=== PATIENT | male | born 1955 | race Caucasian/White ===

== ENCOUNTER 2019-09-25 11:43 | Inpatient (IN) | payer OTHER ==
[~2019-09-25] VITALS: Ht 180.3 cm; Wt 122.1 kg
--- NOTE | 2019-09-25 12:16 | NUR ---
IV START, LABS DRAWN AND LABELLED.
[2019-09-25] MEDS ORDERED: MAALOX/HYOSCYAMINE/LIDOCAINE 45 ML BTL ONE (12:24)
[2019-09-25] MEDS ORDERED: ASPIRIN 81 MG TABLET CHEW ONE (12:24)
[2019-09-25] MEDS ORDERED: MAALOX/HYOSCYAMINE/LIDOCAINE 45 ML BTL PO ONE (12:30)
[2019-09-25] MEDS ORDERED: SODIUM CHLORIDE FLUSH 10ML SYR IVF ONE (12:30)
[2019-09-25] MEDS ORDERED: ASPIRIN 81 MG TABLET CHEW PO ONE (12:30)
[2019-09-25 12:47] LABS: BASOPHILS # (AUTO) 0.03 x10^3/uL (0-0.1); BASOPHILS % (AUTO) 0 % (0-1); EOSINOPHILS # (AUTO) 0.08 x10^3/uL (0-0.4); EOSINOPHILS % (AUTO) 1 % (1-7); LYMPHOCYTES # (AUTO) 1.85 x10^3/uL (1-3.4); LYMPHOCYTES % (AUTO) 20 % (22-44); MD NO; MEAN CORPUSCULAR HEMOGLOBIN 29.7 pg (27.5-34.5); MEAN CORPUSCULAR VOLUME 89.9 fL (81-97); MONOCYTES # (AUTO) 0.67 x10^3/uL (0.2-0.8); MONOCYTES % (AUTO) 7 % (2-9); NEUTROPHILS # (AUTO) 6.73 x10^3/uL (1.8-6.8); NEUTROPHILS % (AUTO) 72 % (42-75); PLATELET COUNT 227 x10^3/uL (130-400); RED BLOOD COUNT 5.21 x10^6/uL (4.38-5.82); RED CELL DISTRIBUTION WIDTH 14.6 % (9.4-14.8)
[2019-09-25 12:48] LABS: ALANINE AMINOTRANSFERASE 33 U/L (12-78); ALBUMIN 3.5 g/dL (3.4-5.0); ANION GAP 7 mmol/L (5-15); CALCIUM 8.4 mg/dL (8.5-10.1); CHLORIDE 109 mmol/L (98-107); CREATININE 1.26 mg/dL (0.7-1.3)
--- NOTE | 2019-09-25 12:50 | NUR ---
PT VERBALIZES SOME RELIEF FOLLOWING GI COCKTAIL. NAD NOTED AT THIS TIME. HOB RECLINED TO LEVEL OF COMFORT. LIGHTS DIMMED. REMAINS AT BEDSIDE. AWAITING LABS.
[2019-09-25 12:53] LABS: ALKALINE PHOSPHATASE 59 U/L (45-117); BILIRUBIN,TOTAL 0.5 mg/dL (0.2-1.0); TOTAL PROTEIN 7.5 g/dL (6.4-8.2); TROPONIN I < 0.015 ng/mL (0.000-0.045)
[2019-09-25] MEDS ORDERED: FLUO10CA14 PO (13:17)
[2019-09-25] MEDS ORDERED: OMEP40CA42 PO (13:17)
[2019-09-25] MEDS ORDERED: ROSU10TA26 PO (13:17)
[2019-09-25] MEDS ORDERED: MONT10TA11 PO (13:17)
[2019-09-25] MEDS ORDERED: [UNRECOGNIZED DRUG - OTHER] PO (13:18)
--- NOTE | 2019-09-25 13:34 | NUR ---
1ST ATTEMPT TO CALL REPORT.
--- NOTE | 2019-09-25 13:46 | NUR ---
BREAK RN: PER THROUGHPUT RN, ADMITTING LEVEL OF CARE HAS BEEN CHANGED; NEW ROOM ASSIGNMENT PENDING.
--- NOTE | 2019-09-25 14:05 | NUR ---
BREAK RN: NEW ROOM ASSIGNMENT RECEIVED. KAMILAH NOT IN ED ROOM.
--- NOTE | 2019-09-25 14:09 | NUR ---
PER JORDAN ROBIN, PT WAS TRANSFERRED TO ROOM [id number]
[2019-09-25 14:14] VITALS: BP 138/83
[2019-09-25] MEDS ORDERED: MULT-658 PO (14:43)
[2019-09-25] MEDS ORDERED: DRON10CA5 PO (14:43)
[2019-09-25] MEDS ORDERED: ONDANSETRON 2MG/ML, 2ML IVPush PRN (16:30)
[2019-09-25] MEDS ORDERED: NITROGLYCERIN 0.4 MG BOTTLE (25 TABS) SL PRN (16:30)
[2019-09-25] MEDS ORDERED: ONDANSETRON ODT 4 MG PO PRN (16:30)
[2019-09-25] MEDS ORDERED: MAALOX/HYOSCYAMINE/LIDOCAINE 45 ML BTL PO PRN (16:30)
[2019-09-25] MEDS ORDERED: POLYETHYLENE GLYCOL 17 GM PACKET PO PRN (16:30)
[2019-09-25] MEDS ORDERED: ENALAPRILAT 1.25 MG/ML, 2ML IVPush PRN (16:30)
[2019-09-25] MEDS ORDERED: BISACODYL 10 MG SUPP PR PRN (16:30)
[2019-09-25] MEDS ORDERED: ENOXAPARIN 40 MG/0.4 ML SQ SCH (16:30)
[2019-09-25] MEDS ORDERED: DOCUSATE 100 MG CAPSULE PO PRN (16:30)
[2019-09-25] MEDS ORDERED: hydrALAzine 20 MG/ML, 1ML IVPush PRN (16:30)
[2019-09-25 18:14] LABS: TROPONIN I < 0.015 ng/mL (0.000-0.045)
[2019-09-25 21:15] VITALS: BP 136/86
[2019-09-25] MEDS: ACETAMINOPHEN 325 MG TABLET PO PRN (21:15)
[2019-09-26 00:52] LABS: TROPONIN I < 0.015 ng/mL (0.000-0.045)
[2019-09-26 02:05] VITALS: BP 119/74
[2019-09-26] MEDS: ASPIRIN 325 MG TABLET EC PO SCH (05:11)
[2019-09-26] MEDS: OMEPRAZOLE 20 MG CAPSULE.DR PO SCH (05:11)
[2019-09-26 05:21] LABS: BASOPHILS # (AUTO) 0.04 x10^3/uL (0-0.1); BASOPHILS % (AUTO) 0 % (0-1); EOSINOPHILS # (AUTO) 0.11 x10^3/uL (0-0.4); EOSINOPHILS % (AUTO) 1 % (1-7); LYMPHOCYTES # (AUTO) 2.55 x10^3/uL (1-3.4); LYMPHOCYTES % (AUTO) 29 % (22-44); MD NO; MEAN CORPUSCULAR HEMOGLOBIN 29.3 pg (27.5-34.5); MEAN CORPUSCULAR HGB CONC 32.7 g/dL (33.2-36.2); MEAN CORPUSCULAR VOLUME 89.7 fL (81-97); MEAN PLATELET VOLUME 7.7 fL (7.4-10.4); MONOCYTES # (AUTO) 0.62 x10^3/uL (0.2-0.8); MONOCYTES % (AUTO) 7 % (2-9); NEUTROPHILS # (AUTO) 5.53 x10^3/uL (1.8-6.8); NEUTROPHILS % (AUTO) 63 % (42-75); PLATELET COUNT 202 x10^3/uL (130-400); RED BLOOD COUNT 5.11 x10^6/uL (4.38-5.82); RED CELL DISTRIBUTION WIDTH 14.9 % (9.4-14.8)
[2019-09-26 05:29] LABS: ANION GAP 7 mmol/L (5-15); CALCIUM 8.6 mg/dL (8.5-10.1); CHLORIDE 107 mmol/L (98-107); CHOLESTEROL, TOTAL 129 mg/dL (140-239); CREATININE 1.15 mg/dL (0.7-1.3); TRIGLYCERIDES 157 mg/dL (50-200); VLDL CHOLESTEROL 31 mg/dL (0-25)
[2019-09-26 05:39] LABS: CHOL/HDL RATIO 3.1; HDL CHOL % 32 % (26-37); HDL CHOLESTEROL (DIRECT) 41 mg/dL (40-60); LDL CHOLESTEROL,CALCULATED 57 mg/dL (54-169); LDL/HDL RATIO 1.4 (0.5-3.0)
[2019-09-26 06:44] VITALS: BP 153/91
[2019-09-26] MEDS: MONTELUKAST 10 MG TABLET PO SCH (09:10)
[2019-09-26] MEDS: MULTIVITAMIN 1 TABLET PO SCH (09:10)
[2019-09-26] MEDS: FLUOXETINE 10 MG CAP PO SCH (09:10)
[2019-09-26] MEDS: ACETAMINOPHEN 325 MG TABLET PO PRN ×2 (11:56→16:21)
[2019-09-26 12:29] VITALS: BP 145/91
[2019-09-26 19:15] VITALS: BP 166/103
[2019-09-26 19:28] VITALS: BP 134/86
[2019-09-26 19:50] VITALS: BP 126/82
[2019-09-26] MEDS: ATORVASTATIN 80 MG TABLET PO SCH (20:40)
[2019-09-27 01:15] VITALS: BP 146/87
[2019-09-27 05:58] LABS: INTERNATIONAL NORMALIZED RATIO 0.98 (0.93-1.1); PROTHROMBIN TIME 10.4 Seconds (9.6-11.5)
[2019-09-27] MEDS: ASPIRIN 325 MG TABLET EC PO SCH (06:04)
[2019-09-27] MEDS: OMEPRAZOLE 20 MG CAPSULE.DR PO SCH (06:04)
[2019-09-27] MEDS: SODIUM CHLORIDE 0.9% 500 ML IV SCH ×2 (06:05→12:40)
[2019-09-27 06:31] VITALS: BP 137/84
[2019-09-27] MEDS ORDERED: BIVALIRUDIN 250 MG ONE ×2 (09:57→11:40)
[2019-09-27] MEDS ORDERED: FENTANYL PF 100 MCG/2ML ONE (09:57)
[2019-09-27] MEDS ORDERED: VERAPAMIL 2.5 MG/ML, 2ML ONE (09:57)
[2019-09-27] MEDS ORDERED: MIDAZOLAM 1 MG/ML, 5ML ONE (09:57)
[2019-09-27] MEDS ORDERED: TICAGRELOR 90 MG TABLET ONE (09:57)
[2019-09-27] MEDS ORDERED: HEPARIN 1,000 UNITS/ML, 10ML ONE (09:58)
[2019-09-27] MEDS ORDERED: LIDOCAINE-MPF 1%, 5ML ONE (09:58)
[2019-09-27] MEDS ORDERED: PRASUGREL 10 MG TABLET ONE (11:30)
[2019-09-27] MEDS: MULTIVITAMIN 1 TABLET PO SCH (12:59)
[2019-09-27] MEDS: MONTELUKAST 10 MG TABLET PO SCH (12:59)
[2019-09-27] MEDS: FLUOXETINE 10 MG CAP PO SCH (12:59)
[2019-09-27 13:29] VITALS: BP 159/69
[2019-09-27] MEDS: METOPROLOL TARTRATE 25 MG TAB PO SCH (18:02)
[2019-09-27 19:28] VITALS: BP 134/78
[2019-09-27] MEDS: ATORVASTATIN 80 MG TABLET PO SCH (19:45)
[2019-09-27] MEDS: TEMAZEPAM 15 MG CAPSULE PO PRN ×2 (19:46→23:01)
[2019-09-28 01:20] VITALS: BP 121/74
[2019-09-28 04:33] LABS: BASOPHILS # (AUTO) 0.03 x10^3/uL (0-0.1); BASOPHILS % (AUTO) 0 % (0-1); EOSINOPHILS # (AUTO) 0.08 x10^3/uL (0-0.4); EOSINOPHILS % (AUTO) 1 % (1-7); LYMPHOCYTES # (AUTO) 2.56 x10^3/uL (1-3.4); LYMPHOCYTES % (AUTO) 24 % (22-44); MD NO; MEAN CORPUSCULAR HEMOGLOBIN 29.5 pg (27.5-34.5); MEAN CORPUSCULAR HGB CONC 32.6 g/dL (33.2-36.2); MEAN CORPUSCULAR VOLUME 90.2 fL (81-97); MEAN PLATELET VOLUME 7.5 fL (7.4-10.4); MONOCYTES % (AUTO) 8 % (2-9); NEUTROPHILS # (AUTO) 7.24 x10^3/uL (1.8-6.8); NEUTROPHILS % (AUTO) 67 % (42-75); PLATELET COUNT 203 x10^3/uL (130-400); RED BLOOD COUNT 5.23 x10^6/uL (4.38-5.82); RED CELL DISTRIBUTION WIDTH 14.6 % (9.4-14.8)
[2019-09-28 04:42] LABS: ANION GAP 6 mmol/L (5-15); CALCIUM 8.5 mg/dL (8.5-10.1); CHLORIDE 108 mmol/L (98-107); CREATININE 1.18 mg/dL (0.7-1.3)
[2019-09-28 05:29] VITALS: BP 162/80
[2019-09-28] MEDS: METOPROLOL TARTRATE 25 MG TAB PO SCH (05:30)
[2019-09-28] MEDS: OMEPRAZOLE 20 MG CAPSULE.DR PO SCH (05:33)
[2019-09-28] MEDS ORDERED: ASPIRIN 81 MG TABLET EC PO SCH (06:00)
[2019-09-28 07:08] VITALS: BP 122/77
[2019-09-28] MEDS ORDERED: METO25TA2 PO (07:17)
[2019-09-28] MEDS ORDERED: ASPI81TA45 PO (07:17)
[2019-09-28] MEDS ORDERED: PRAS10TA4 PO (07:17)
[2019-09-28] MEDS: MULTIVITAMIN 1 TABLET PO SCH (08:05)
[2019-09-28] MEDS: FLUOXETINE 10 MG CAP PO SCH (08:05)
[2019-09-28] MEDS: MONTELUKAST 10 MG TABLET PO SCH (08:05)
[2019-09-28] MEDS ORDERED: PRASUGREL 10 MG TABLET PO SCH (09:00)
== END 2019-09-28 12:04 | disposition home or self-care (01) | DRG 247 ==
LOC: ED 12:40 → INTOOBSV 13:04 → EDIP 13:04 → 5SO 14:00 → OBSVTOIN 09-27 11:22
PROVIDERS: ADMIT Internal Medicine; ATTEND Internal Medicine
PROC: 027034Z Dilation of Coronary Artery, One Artery with Drug-eluting Intraluminal Device, Percutaneous Approach (ICD-10-PCS; principal; 2019-09-27)
PROC: 4A023N7 Measurement of Cardiac Sampling and Pressure, Left Heart, Percutaneous Approach (ICD-10-PCS; 2019-09-27)
PROC: B2111ZZ Fluoroscopy of Multiple Coronary Arteries using Low Osmolar Contrast (ICD-10-PCS; 2019-09-27)
PROC: B2151ZZ Fluoroscopy of Left Heart using Low Osmolar Contrast (ICD-10-PCS; 2019-09-27)
DX: I20.0 Unstable angina (principal); I47.2 Ventricular tachycardia; I16.0 Hypertensive urgency; E78.5 Hyperlipidemia, unspecified; E66.9 Obesity, unspecified; F41.9 Anxiety disorder, unspecified; F32.9 Major depressive disorder, single episode, unspecified; I10 Essential (primary) hypertension; K21.9 Gastro-esophageal reflux disease without esophagitis; K57.90 Diverticulosis of intestine, part unspecified, without perforation or abscess without bleeding; J45.909 Unspecified asthma, uncomplicated; F12.90 Cannabis use, unspecified, uncomplicated; Z87.891 Personal history of nicotine dependence; Z80.0 Family history of malignant neoplasm of digestive organs; Z88.0 Allergy status to penicillin; Z68.37 Body mass index [BMI] 37.0-37.9, adult; Z79.899 Other long term (current) drug therapy; Z98.49 Cataract extraction status, unspecified eye; Z82.49 Family history of ischemic heart disease and other diseases of the circulatory system; Z82.61 Family history of arthritis; Z84.89 Family history of other specified conditions
CPT/HCPCS: 36415; 71045; 80048; 80053; 80061; 83036; 83690; 83735; 84443; 84484; 85025; 85610; 85730; 93005; 93017; 93306; 93458; 99156; 99157; C1769; C1894; C9600; G0378; J0583; J1644; J1650; J2250; J3010; C1725; C1874; C1887; J7040; Q9967